=== PATIENT | female | born 1995 | race Two or more races ===

== ENCOUNTER → 2024-12-14 | Outpatient (CLI) | payer OTHER ==
[2024-12-14 09:05] LABS: Alanine Aminotransferase 13 U/L (7-40); Anion Gap 8 (5-15); Carbon Dioxide 24 mmol/L (20-31); Chloride 105 mmol/L (98-107); Glucose 95 mg/dL (74-106); Potassium 3.6 mmol/L (3.5-5.1); Sodium 137 mmol/L (136-145)
[2024-12-14 09:06] LABS: Albumin 3.8 g/dL (3.2-4.8); Aspartate Aminotransferase 16 U/L (13-40); Bilirubin, Total 0.4 mg/dL (0.2-1.0); Total Protein 6.3 g/dL (5.7-8.2)
[2024-12-14 09:07] LABS: Basophils # (auto) 0 10 ^3/uL (0-0.2); Basophils % (auto) 0.2 % (0.0-2.0); Eosinophils # (auto) 0.1 10 ^3/uL (0-0.8); Eosinophils % (auto) 0.6 % (0.0-7.0); Hematocrit 29.8 % (36.0-46.0); Hemoglobin 10.2 g/dL (12.2-16.2); Lymphocytes # (auto) 1.5 10 ^3/uL (0.4-5.4); Lymphocytes % (auto) 15.7 % (10.0-50.0); Mean Corpuscular Hemoglobin 31.5 pg (28.0-32.0); Mean Corpuscular Hgb Conc. 34.2 g/dL (32.0-36.0); Mean Corpuscular Volume 92.3 fL (80.0-100.0); Monocytes # (auto) 0.9 10 ^3/uL (0-1.3); Monocytes % (auto) 8.9 % (0.0-12.0); Neutrophils # (auto) 7.3 10 ^3/uL (1.6-8.6); Neutrophils % (auto) 74.6 % (37.0-80.0); Platelet Count (auto) 315 10^3/uL (140-450); Red Blood Cells 3.23 10^6/uL (4.0-5.20); Red Cell Distribution Width 13.7 % (11.8-14.3); White Blood Cell 9.7 10^3/uL (4.4-10.8)
[2024-12-14 09:31] LABS: Alkaline Phosphatase 152 U/L (46-116); BUN/Creatinine Ratio 8.6 (10.0-20.0); Blood Urea Nitrogen < 5 mg/dL (9-23)
[2024-12-15 08:06] LABS: RPR Non Reactive (Non Reactive)
[2024-12-16 10:06] LABS: Chlamydia Trachomatis, NAA Negative (Negative); Neisseria gonorrhoeae, NAA Negative (Negative)
== END | disposition home or self-care (01) ==
LOC: LAB 07:49
DX: Z34.80 Encounter for supervision of other normal pregnancy, unspecified trimester (principal)
CPT/HCPCS: 36415; 80053; 82951; 83036; 85025; 86592; 86850; 86900; 86901

== ENCOUNTER 2025-01-10 07:01 | Observation (INO) | payer OTHER ==
[2025-01-10] MEDS ORDERED: PREN-96 PO (09:23)
--- NOTE | 2025-01-10 10:14 | DVH ---
CLINICAL HISTORY: Gestational diabetes. COMPARISON: None TECHNIQUE: biophysical profile was performed. Transabdominal sonographic images of the fetus we re obtained. FINDINGS: The fetus is in cephalic position. heart rate measures 147 BPM. Amniotic fluid index measures 20.1 cm. The placenta is posterior in position. The tip of the placenta is within 2.1 cm of the cervical os. BPP profile is an overall score of 8/8, with 2/2 points for breathing, with at least one episode of breathing over a 30 second duration during a 30 minute observation, 2/2 points for m ovements, with 3 or more discrete body or limb movements, 2/2 points for tone, with one or more episodes of extremity extension with return to flexion, or opening and closing of hand, and 2/ 2 points for amniotic fluid, with at least 1 pocket of amniotic fluid that measures 2 cm in 2 perpend icular planes. IMPRESSION: 1. BPP score of 8/8. 2. Tip of the placenta is approximately 2.1 cm from the cervical os.
--- NOTE | 2025-01-10 20:15 | DVHDS2 ---
Physician Discharge Progress N Final Diagnosis: testing for GDM, A1 Operations or Procedures: Operations or Procedures 29yo IUP@33.3wks, +FM, denies LOF/UCs/VB VSS NST reactive FKC/PTL precautions reviewed Continue pelvic rest Dr. Montes consulted, agrees with POC. Other Interventions Other Interventions [place] [address] Ph: [phone] DIAGNOSTIC IMAGING Diagnostic Imaging Report : [id number] Signed PATIENT: LYNN QUARLES AACCT: [id number] UNIT: [id number] : 1995 LOC: [facility] ROOM / BED: TRIAGE2 / A AGE / SEX: 29 / F ADM STATUS: ADM IN SERVICE 9 ORDERING PHYSICIAN: YAZAN ONEAL CNM PROCEDURE(s): BPP - BIOPHYSICAL PROFILE REASON: GDMA2 ORDER NUMBER(s): [id number], ACCESSION NUMBER(s): [id number] CLINICAL HISTORY: Gestational diabetes. COMPARISON: None TECHNIQUE: biophysical profile was performed. Transabdominal sonographic images of the fetus were obtained. FINDINGS: The fetus is in cephalic position. heart rate measures 147 BPM. Amniotic fluid index measures 20.1 cm. The placenta is posterior in position. The tip of the placenta is within 2.1 cm of the cervical os. BPP profile is an overall score of 8/8, with 2/2 points for breathing, with at least one episode of breathing over a 30 second duration during a 30 minute observation, 2/2 points for movements, with 3 or more discrete body or limb movements, 2/2 points for tone, with one or more episodes of extremity extension with return to flexion, or opening and closing of hand, and 2/2 points for amniotic fluid, with at least 1 pocket of amniotic fluid that measures 2 cm in 2 perpendicular planes. IMPRESSION: 1. BPP score of 8/8. 2. Tip of the placenta is approximately 2.1 cm from the cervical os. ATED BY: TOO PADILLA DO DICTATED DATE/TIME: 01/10/25 1012 SIGNED BY: TOO PADILLA DO SIGNED DATE/TIME: 01/10/25 1012 CC: Condition on Discharge: Stable Disposition: Home Discharge Instructions: Diet: Consistent carbohydrate Activity: Light activity Medications: see med list Follow Up Care: Specialist: f/u in 1wk Discharge Statement: "Patient was advised to return to the ER or call 911 if any headaches, dizziness, shortness of breath, chest pain, abdominal pain, bleeding, fevers, or worsening of medical condition. Patient was counseled about treatment plan, medications, possible side effects, patientverbalized understanding. All questions were answered to the best of my ability. This discharge took greater then 30 minutes in planning, reviewing documentation, counseling the patient, and discussing with other team members." Visit Coding OBGYN Date of Service: Jan 10, 2025 Billing Provider: YAZAN ONEAL CNM SOFTWARE ENGINEERING ASSOCIATE MANAGER Common Visit Codes: [id number] OBS CARE (HIGH) YAZAN ONEAL CNM Jan 10, 2025 20:15
== END 2025-01-10 10:37 | disposition home or self-care (01) ==
LOC: UNDOADMOB 09:19 → LDRP 09:19
PROVIDERS: ADMIT Obstetrics & Gynecology; ATTEND Obstetrics & Gynecology
DX: O24.419 Gestational diabetes mellitus in pregnancy, unspecified control (principal); Z3A.33 33 weeks gestation of pregnancy; Z79.899 Other long term (current) drug therapy; Z98.890 Other specified postprocedural states
CPT/HCPCS: 59025; 76818; 81002; 82948; 82962; 94760; G0378

== ENCOUNTER 2025-01-17 09:00 | Observation (INO) | payer OTHER ==
[~2025-01-17 09:00] MED LIST: PREN-96 PO
--- NOTE | 2025-01-17 10:19 | DVH ---
BIOPHYSICAL PROFILE HISTORY: GDMA1 Comparison Study: 01/10/2025 TECHNIQUE: Multiple real-time grayscale sonographic images through the gravid uterus of the fetus wi th duplex Doppler color flow and M-mode spectral analysis FINDINGS: BIOPHYSICAL PROFILE: breathing score: 2 movement score: 2 tone score: 2 Quantitative JORDYN score: 2 (JORDYN: 18 Cm.) Total score: 8 The cervix is not visualized. Single live fetus in cephalic presentation. heart rate 138 beats per minute. Posterior low-lying placenta approximately 2.1 cm from the cervical os. IMPRESSION: Biophysical profile score: 8 Posterior low-lying placenta approximately 2.1 cm from the cervical os.
--- NOTE | 2025-01-17 19:37 | DVHDS2 ---
Physician Discharge Progress N Final Diagnosis: testing for GDM, A1 Operations or Procedures: Operations or Procedures 29yo IUP@34.3wks, +FM, denies UCs/LOF/VB VSS NST reactive sono: low lying placenta continue pelvic rest FKC/PTL precautions reviewed Other Interventions Other Interventions [facility] [id number] [place] [address] Ph: [phone] DIAGNOSTIC IMAGING Diagnostic Imaging Report : [id number] Signed PATIENT: LYNN QUARLES AACCT: [id number] UNIT: [id number] : 1995 LOC: LD ROOM / BED: [facility] / A AGE / SEX: 29 / F ADM STATUS: ADM IN SERVICE 4 ORDERING PHYSICIAN: YAZAN ONEAL CNM PROCEDURE(s): BPP - BIOPHYSICAL PROFILE REASON: GDMA1 ORDER NUMBER(s): [id number], ACCESSION NUMBER(s): [id number] BIOPHYSICAL PROFILE HISTORY: GDMA1 Comparison Study: 01/10/2025 TECHNIQUE: Multiple real-time grayscale sonographic images through the gravid uterus of the fetus with duplex Doppler color flow and M-mode spectral analysis FINDINGS: BIOPHYSICAL PROFILE: breathing score: 2 movement score: 2 tone score: 2 Quantitative JORDYN score: 2 (JORDYN: 18 Cm.) Total score: 8 The cervix is not visualized. Single live fetus in cephalic presentation. heart rate 138 beats per minute. Posterior low-lying placenta approximately 2.1 cm from the cervical os. IMPRESSION: Biophysical profile score: 8 Posterior low-lying placenta approximately 2.1 cm from the cervical os. ATED BY: FRANCIS PURI MD DICTATED DATE/TIME: 01/17/25 101 SIGNED BY: FRANCIS PURI MD SIGNED DATE/TIME: 01/17/25 101 CC: Condition on Discharge: Stable Disposition: Home Discharge Instructions: Diet: Consistent carbohydrate Activity: See Comment Activity comment: pelvic rest Medications: see med list Follow Up Care: Specialist: f/u in 1 wk Discharge Statement: "Patient was advised to return to the ER or call 911 if any headaches, dizziness, shortness of breath, chest pain, abdominal pain, bleeding, fevers, or worsening of medical condition. Patient was counseled about treatment plan, medications, possible side effects, patientverbalized understanding. All questions were answered to the best of my ability. This discharge took greater then 30 minutes in planning, reviewing documentation, counseling the patient, and discussing with other team members." Visit Coding OBGYN Date of Service: Jan 17, 2025 Billing Provider: YAZAN ONEAL CNM DIRECTOR OF MUSIC THERAPY Common Visit Codes: [id number] OBS CARE (HIGH) DIRECTOR OF MUSIC THERAPY Procedure Codes: 16720-81- NON-STRESS TEST YAZAN ONEAL CNM Jan 17, 2025 19:37
== END 2025-01-17 10:54 | disposition home or self-care (01) ==
LOC: UNDOADMOB 09:00 → LDRP 09:00 → UNDODISOB 10:54
PROVIDERS: ADMIT Obstetrics & Gynecology; ATTEND Obstetrics & Gynecology
DX: O24.419 Gestational diabetes mellitus in pregnancy, unspecified control (principal); Z98.890 Other specified postprocedural states; Z79.899 Other long term (current) drug therapy; Z3A.34 34 weeks gestation of pregnancy
CPT/HCPCS: 59025; 76818; 81002; 82948; 82962; 94760; G0378

== ENCOUNTER 2025-01-31 11:35 | Observation (INO) | payer OTHER ==
[~2025-01-31 11:35] MED LIST changes: -LEVO-848 PO
[2025-01-31] MEDS ORDERED: LEVO-848 PO (12:35)
--- NOTE | 2025-01-31 12:39 | DVH ---
CLINICAL HISTORY: Gestational diabetes. COMPARISON: US BIOPHYSICAL PROFILE on DOS: 01/17/25, US BIOPHYSICAL PROFILE on DOS: 01/10/25 TECHNIQUE: biophysical profile was performed. Transabdominal sonographic images of the fetus we re obtained. FINDINGS: The fetus is in cephalic position. heart rate measures 129 BPM. Amniotic fluid index measures 19.2 cm. The placenta is posterior in position, without evidence of previa or abruption. BPP profile is an overall score of 8/8, with 2/2 points for breathing, with at least one episode of breathing over a 30 second duration during a 30 minute observation, 2/2 points for m ovements, with 3 or more discrete body or limb movements, 2/2 points for tone, with one or more episodes of extremity extension with return to flexion, or opening and closing of hand, and 2/ 2 points for amniotic fluid, with at least 1 pocket of amniotic fluid that measures 2 cm in 2 perpend icular planes. IMPRESSION: BPP score of 8/8.
--- NOTE | 2025-01-31 21:43 | DVHDS2 ---
Physician Discharge Progress N Final Diagnosis: testing for GDM, A1 Operations or Procedures: Operations or Procedures 29yo IUP@36.3wks, +FM, Denies LOF/VB/MARTIN/vision changes/RUQ pain. VSS NST reactive kick counts and Preeclampsia warning signs reviewed. PTL precautions given and when to return to the hospital. Dr. Montes consulted, agrees with POC. Other Interventions Other Interventions [place] [address] Ph: [phone] DIAGNOSTIC IMAGING Diagnostic Imaging Report : [id number] Signed PATIENT: LYNN QUARLES AACCT: [id number] UNIT: [id number] : 1995 LOC: [facility] ROOM / BED: TRIAGE1 / A AGE / SEX: 29 / F ADM STATUS: ADM IN SERVICE 1145 ORDERING PHYSICIAN: YAZAN ONEAL CNM PROCEDURE(s): BPP - BIOPHYSICAL PROFILE REASON: GDMA1 ORDER NUMBER(s): [id number], ACCESSION NUMBER(s): [id number] CLINICAL HISTORY: Gestational diabetes. COMPARISON: US BIOPHYSICAL PROFILE on DOS: 01/17/25, US BIOPHYSICAL PROFILE on DOS: 01/10/25 TECHNIQUE: biophysical profile was performed. Transabdominal sonographic images of the fetus were obtained. FINDINGS: The fetus is in cephalic position. heart rate measures 129 BPM. Amniotic fluid index measures 19.2 cm. The placenta is posterior in position, without evidence of previa or abruption. BPP profile is an overall score of 8/8, with 2/2 points for breathing, with at least one episode of breathing over a 30 second duration during a 30 minute observation, 2/2 points for movements, with 3 or more discrete body or limb movements, 2/2 points for tone, with one or more episodes of extremity extension with return to flexion, or opening and closing of hand, and 2/2 points for amniotic fluid, with at least 1 pocket of amniotic fluid that measures 2 cm in 2 perpendicular planes. IMPRESSION: BPP score of 8/8. ATED BY: TOO PADILLA DO DICTATED DATE/TIME: 01/31/25 1236 SIGNED BY: TOO PADILLA DO SIGNED DATE/TIME: 01/31/25 1236 CC: Condition on Discharge: Stable Disposition: Home Discharge Instructions: Diet: Consistent carbohydrate Activity: No Restrictions, As Tolerated Medications: see med list Follow Up Care: Specialist: f/u in 1 wk Discharge Statement: "Patient was advised to return to the ER or call 911 if any headaches, dizziness, shortness of breath, chest pain, abdominal pain, bleeding, fevers, or worsening of medical condition. Patient was counseled about treatment plan, medications, possible side effects, patientverbalized understanding. All questions were answered to the best of my ability. This discharge took greater then 30 minutes in planning, reviewing documentation, counseling the patient, and discussing with other team members." Visit Coding OBGYN Date of Service: Jan 31, 2025 Billing Provider: YAZAN ONEAL CNM PROCUREMENT COORDINATOR Common Visit Codes: [id number] OBS CARE (HIGH) PROCUREMENT COORDINATOR Procedure Codes: 23766-52- NON-STRESS TEST YAZAN ONEAL CNM Jan 31, 2025 21:43
== END 2025-01-31 13:06 | disposition home or self-care (01) ==
LOC: LDRP 11:35
PROVIDERS: ADMIT Obstetrics & Gynecology; ATTEND Obstetrics & Gynecology
DX: O24.419 Gestational diabetes mellitus in pregnancy, unspecified control (principal); Z98.890 Other specified postprocedural states; Z79.899 Other long term (current) drug therapy; Z3A.36 36 weeks gestation of pregnancy
CPT/HCPCS: 76818; 81002; 82948; 82962; 94760; G0378; 59025

== ENCOUNTER → 2025-01-31 | Outpatient (CLI) | payer OTHER ==
[~2025-01-31] MED LIST changes: +LEVO-848 PO
[2025-01-31 11:58] LABS: Basophils # (auto) 0 10 ^3/uL (0-0.2); Basophils % (auto) 0.2 % (0.0-2.0); Eosinophils # (auto) 0 10 ^3/uL (0-0.8); Eosinophils % (auto) 0.4 % (0.0-7.0); Hematocrit 32.2 % (36.0-46.0); Hemoglobin 11.1 g/dL (12.2-16.2); Lymphocytes # (auto) 1.5 10 ^3/uL (0.4-5.4); Lymphocytes % (auto) 16.4 % (10.0-50.0); Mean Corpuscular Hemoglobin 31.5 pg (28.0-32.0); Mean Corpuscular Hgb Conc. 34.6 g/dL (32.0-36.0); Monocytes # (auto) 0.8 10 ^3/uL (0-1.3); Monocytes % (auto) 8.8 % (0.0-12.0); Neutrophils # (auto) 6.9 10 ^3/uL (1.6-8.6); Neutrophils % (auto) 74.2 % (37.0-80.0); Platelet Count (auto) 291 10^3/uL (140-450); Red Blood Cells 3.53 10^6/uL (4.0-5.20); White Blood Cell 9.3 10^3/uL (4.4-10.8)
[2025-02-01 08:07] LABS: RPR Non Reactive (Non Reactive)
[2025-02-02 06:07] LABS: Chlamydia Trachomatis, NAA Negative (Negative); Neisseria gonorrhoeae, NAA Negative (Negative)
== END | disposition home or self-care (01) ==
LOC: LAB 11:23
PROVIDERS: ATTEND Obstetrics & Gynecology
DX: Z34.80 Encounter for supervision of other normal pregnancy, unspecified trimester (principal); Z3A.00 Weeks of gestation of pregnancy not specified
CPT/HCPCS: 36415; 84702; 85025; 86592; 86703; 87086; 87340

== ENCOUNTER 2025-02-06 07:17 | Observation (INO) | payer OTHER ==
[~2025-02-06 07:17] MED LIST changes: +LEVO-848 PO
--- NOTE | 2025-02-06 14:05 | DVH ---
CLINICAL HISTORY: Gestational diabetes. COMPARISON: US BIOPHYSICAL PROFILE on DOS: 01/31/25, US BIOPHYSICAL PROFILE on DOS: 01/17/25, US BIOPHYS ICAL PROFILE on DOS: 01/10/25 TECHNIQUE: biophysical profile was performed. Transabdominal sonographic images of the fetus we re obtained. FINDINGS: The fetus is in cephalic position. heart rate measures 162 BPM. Amniotic fluid index measures 15.4 cm. The placenta is posterior in position without evidence of previa or abruption. BPP profile is an overall score of 8/8, with 2/2 points for breathing, with at least one episode of breathing over a 30 second duration during a 30 minute observation, 2/2 points for m ovements, with 3 or more discrete body or limb movements, 2/2 points for tone, with one or more episodes of extremity extension with return to flexion, or opening and closing of hand, and 2/ 2 points for amniotic fluid, with at least 1 pocket of amniotic fluid that measures 2 cm in 2 perpend icular planes. Nuchal cord visualized. IMPRESSION: 1. BPP score of 8/8. 2. Nuchal cord visualized.
--- NOTE | 2025-02-06 23:53 | DVHDS2 ---
Discharge Summary Date of Admission Feb 06, 2025 at 12:12 Date of Discharge: Feb 06, 2025 Admitting Diagnosis Nst bpp GDMA1 Labs/Diagnostic Data: Laboratory Results Test 02/06/25 12:41 POC Glucose 72 mg/dl (70-106) Brief Hx & Hospital Course: nst bpp Consults/Reason for consult none Condition at Discharge: Good Final Diagnosis/Problems List GDMA1 Discharge Disposition: Home SNF Discharge Will this Physician continue t: No Discharge Instruct/Medications Diet: Consistent carbohydrate Activity: No Restrictions, As Tolerated Follow Up/Referral: as scheduled Medications: resume home meds Discharge Statement: "Patient was advised to return to the ER or call 911 if any headaches, dizziness, shortness of breath, chest pain, abdominal pain, bleeding, fevers, or worsening of medical condition. Patient was counseled about treatment plan, medications, possible side effects, patientverbalized understanding. All questions were answered to the best of my ability. This discharge took greater then 30 minutes in planning, reviewing documentation, counseling the patient, and discussing with other team members." ASSESSMENT ASSESSMENT Assessment Visit Coding OBGYN Date of Service: Feb 06, 2025 Billing Provider: KARLA NAJERA DO BATH MIX OPERATOR Common Visit Codes: [id number] INP/OBS CARE(LOW), 55317-[id number] INP/OBS CARE(HIGH), 66891-AKF/OBS SAME DATE (MOD) BATH MIX OPERATOR Procedure Codes: 51183-09- NON-STRESS TEST KARLA NAJERA DO Feb 06, 2025 23:53
== END 2025-02-06 13:28 | disposition home or self-care (01) ==
LOC: UNDOADMOB 12:03 → LDRP 12:03
PROVIDERS: ADMIT Obstetrics & Gynecology; ATTEND Obstetrics & Gynecology
DX: O24.419 Gestational diabetes mellitus in pregnancy, unspecified control (principal); Z98.890 Other specified postprocedural states; Z79.899 Other long term (current) drug therapy; Z3A.37 37 weeks gestation of pregnancy
CPT/HCPCS: 76818; 81002; 82948; 82962; 94760; G0378; 59025; 76819

== ENCOUNTER 2025-02-25 10:05 | Observation (INO) | payer OTHER ==
--- NOTE | 2025-02-25 11:38 | DVH ---
Procedure: US BIOPHYSICAL PROFILE 02/25/2025 10:18 AM Indication: GDMA1/Term Comparison: US BIOPHYSICAL PROFILE on DOS: 02/06/25, US BIOPHYSICAL PROFILE on DOS: 01/31/25, US BIOPHYS ICAL PROFILE on DOS: 01/17/25 Technique: Sonogram of gravid uterus utilizing grayscale and color techniques. FINDINGS: Single living intrauterine gestation. Presentation: Cephalic Placenta: Posterior heart rate: 132 bpm JORDYN: 16.9 cm, DVP: 4.2 cm Maternal cervix: Not visualized Biophysical Profile: breathing score: 2 movement score: 2 tone: 2 Quantitative JORDYN score: 2 Total score: 8/8 IMPRESSION: 1. Single living as above. 2. Biophysical profile score: 8/8.
--- NOTE | 2025-02-25 11:46 | DVHDS2 ---
Physician Discharge Progress N Final Diagnosis: gdm 40wks Operations or Procedures: Operations or Procedures nst 40wks,refuses induction Other Interventions Other Interventions pt takes full responsibility for refusAL OF IOL Condition on Discharge: Good Disposition: Home Discharge Instructions: Diet: Consistent carbohydrate Activity: Light activity Medications: NA Follow Up Care: Specialist: 2D Discharge Statement: "Patient was advised to return to the ER or call 911 if any headaches, dizziness, shortness of breath, chest pain, abdominal pain, bleeding, fevers, or worsening of medical condition. Patient was counseled about treatment plan, medications, possible side effects, patientverbalized understanding. All questions were answered to the best of my ability. This discharge took greater then 30 minutes in planning, reviewing documentation, counseling the patient, and discussing with other team members." Visit Coding OBGYN Date of Service: Feb 25, 2025 Billing Provider: JJ CHAMPAGNE DO BRANCH EXAMINER Common Visit Codes: [id number] INP/OBS CARE (HIGH) BRANCH EXAMINER Procedure Codes: 41199-14- NON-STRESS TEST JJ CHAMPAGNE DO Feb 25, 2025 11:46
== END 2025-02-25 11:26 | disposition home or self-care (01) ==
LOC: LDRP 10:05
PROVIDERS: ADMIT Obstetrics & Gynecology; ATTEND Obstetrics & Gynecology
DX: O24.419 Gestational diabetes mellitus in pregnancy, unspecified control (principal); Z3A.40 40 weeks gestation of pregnancy; Z79.899 Other long term (current) drug therapy
CPT/HCPCS: 76818; 81002; 94760; G0378; 59025; 76819